=== PATIENT | male | born 1945 | race Caucasian/White ===

== ENCOUNTER → 2017-07-27 | Outpatient (CLI) | payer OTHER ==
[2017-07-27 11:09] LABS: BASO % 1.5 %; BASO ABS # 0.08 K/uL (0-0.2); COMPLETE YES; EOS % 2.9 %; HEMATOCRIT 42.9 % (42-52); IG% 0.2 %; LYMPH % 34.5 %; LYMPH ABS # 1.81 K/uL (1.2-3.4); MEAN CELL VOLUME 83.3 fL (80-100); MEAN CORPUSCULAR HEMOGLOBIN 27.6 pg (25-34); MEAN CORPUSCULAR HGB CONC 33.1 g/dl (32-36); MEAN PLATELET VOLUME 10.2 fL (7.4-10.4); MONO % 9.7 %; NEUT % 51.2 %; PLATELET COUNT 316 K/uL (130-400); RED BLOOD COUNT 5.15 M/uL (4.7-6.1); WHITE BLOOD COUNT 5.25 K/uL (4.8-10.8)
[2017-07-27 11:30] LABS: URINE APPEARANCE CLEAR (CLEAR); URINE BILIRUBIN NEG (NEG); URINE COLOR YELLOW; URINE EPITHELIAL CELL AUTO >30 /lpf (0-5); URINE NITRITE NEG (NEG); URINE PH 5.5 (4.5-7.5); URINE SPECIFIC GRAVITY 1.021 (1.000-1.030); UROBILINOGEN NEG (NEG)
[2017-07-27 11:31] LABS: MANUAL MICROSCOPIC REQUIRED? NO; REVIEW REQ? NO
[2017-07-27 11:37] LABS: BLOOD UREA NITROGEN 25 mg/dl (7-18); BUN/CREATININE RATIO 25.9 (10-20); CALCIUM 9.2 mg/dl (8.5-10.1); CARBON DIOXIDE 30 mmol/L (21-32); CHLORIDE 105 mmol/L (98-107); CHOLESTEROL 239 mg/dl (0-200); CREATININE 0.96 mg/dl (0.60-1.40); GLUCOSE 98 mg/dl (70-99); POTASSIUM 4.8 mmol/L (3.5-5.1); SODIUM 139 mmol/L (136-145)
[2017-07-27 11:48] LABS: ALB/GLOB RATIO 0.9 (0.9-2); ALKALINE PHOSPHATASE 80 U/L (45-117); ALT/SGPT 32 U/L (12-78); AST/SGOT 15 U/L (15-37); CHOLESTEROL/HDL RATIO 4.7; HDL CHOLESTEROL 51 mg/dl; LDL CHOLESTEROL CALCULATED 168 mg/dl; TRIGLYCERIDES 99 mg/dl (0-150); VERY LOW DENSITY LIPOPROT CALC 20 mg/dl
== END | disposition home or self-care (01) ==
LOC: C.LABBC 07:46
PROVIDERS: ATTEND Internal Medicine Pulmonary Disease
DX: Z00.00 Encounter for general adult medical examination without abnormal findings (principal); K21.9 Gastro-esophageal reflux disease without esophagitis; E78.5 Hyperlipidemia, unspecified; N40.0 Benign prostatic hyperplasia without lower urinary tract symptoms

== ENCOUNTER 2019-12-18 16:59 | Observation (INO) ==
[2019-12-18] MEDS ORDERED: SODIUM CHLORIDE 0.9% 500 ML IV SCH (17:45)
[2019-12-18 17:49] LABS: Basophils # (auto) 0.06 K/uL (0-0.2); Basophils % (auto) 0.9 %; Eosinophils % (auto) 2.9 %; Hematocrit (blood only) 41.8 % (42-52); Immature Granulocytes # (auto) 0.02 K/uL (0.00-0.02); Immature Granulocytes % (auto) 0.3 %; Lymphocytes # (auto) 2.23 K/uL (1.2-3.4); Lymphocytes % (auto) 32.4 %; Mean Corpuscular Hemoglobin 28.6 pg (25-34); Mean Corpuscular Hgb Conc 33.5 g/dL (32-36); Mean Corpuscular Volume 85.3 fL (80-100); Mean Platelet Volume 10.5 fL (7.4-10.4); Monocytes # (auto) 0.53 K/uL (0.11-0.59); Monocytes % (auto) 7.7 %; Neutrophils # (auto) 3.84 K/uL (1.4-6.5); Neutrophils % (auto) 55.8 %; Platelet Count 296 K/uL (130-400); RDW Standard Deviation 43.7 fL (36.4-46.3); White Blood Count 6.88 K/uL (4.8-10.8)
[2019-12-18 18:02] LABS: Partial Thromboplastin Time 25.9 Seconds (21.0-31.0); Prothrombin Time 10.2 Seconds (9.0-12.0)
[2019-12-18 18:05] LABS: Albumin Level 3.6 gm/dl (3.4-5.0); BUN Creatinine Ratio 16.4 (10-20); Est GFR (Non-African American) 77.7; Magnesium 2.3 mg/dl (1.8-2.4); Potassium 4.2 mmol/L (3.5-5.1)
[2019-12-18 18:22] LABS: Albumin Globulin Ratio 0.9 (0.9-2); Bilirubin,Total 0.6 mg/dl (0.2-1); Globulin 3.8 gm/dl (2.5-4.0); Thyroid Stimulating Hormone 2.24 uIu/ml (0.300-4.500); Total Protein 7.4 gm/dl (6.4-8.2); Troponin I 0.121 ng/ml (0-0.045)
[2019-12-18] MEDS ORDERED: Heparin IV Low Dose WITH Bolus IV STA (18:37)
[2019-12-18] MEDS ORDERED: ASPIRIN 81 MG CHEW PO STA (18:37)
[2019-12-18] MEDS ORDERED: HEPARIN SODIUM/DEXTROSE 25,000 UNITS/500 ML BAG IV SCH (18:45)
[2019-12-18] MEDS ORDERED: Heparin BOLUS **ED Use Only IV STA (19:33)
--- NOTE | 2019-12-18 19:34 | XRay Report ---
XR chest 2V PA/lateral CLINICAL HISTORY: afib eval for cardiomegaly cardiac arrhythmia COMPARISON STUDY: No previous studies for comparison. FINDINGS: The bones soft tissues and hemidiaphragms are normal. The cardiomediastinal silhouette is n ormal. The lungs are clear. The pulmonary vasculature is normal. IMPRESSION: Negative chest. ACT 112: Negative or not required by law. The above report was generated using voice recognition software. It may contain grammatical, syntax or spelling errors. Electronically signed by: Chance Figueroa M.D. 12/18/2019 7:33 PM
--- NOTE | 2019-12-18 19:47 | History & Physical Report ---
Date of Service December 18, 2019 Assessment & Plan (1) New onset a-fib: Admit to PCU on telemetry. Vital signs every 4 hours. Started heparin drip with bolus in the ER This was discussed with patient account service associate who stated that it will not affect patient vision due to recent cataract surgery per Dr. Lambert. Consult cardiology TTE pending Since heart rate is in 60s at this time we did not start beta-blockers but if rate increases patient should be on it. DVT prophylaxis patient is on heparin drip Full code Present on Admission?: Yes (2) Elevated troponin: Will trend down troponin x3 with EKG. Appears to be elevated troponin associated with increased demand related to A. fib's. It is hard to to know if patient had faster rate of A. fib's prior to this event but he just did not feel it. We will discuss further management with cardiology Present on Admission?: Yes (3) Status post cataract surgery: Continue observing for any kind of bleeding into glans or sclera. Continue eyedrops Present on Admission?: Yes (4) Esophageal reflux: Continue home medicine as omeprazole 40 mg p.o. daily (5) BPH (benign prostatic hyperplasia): Patient does not take anything for enlarged prostate Present on Admission?: Yes (6) Hyperlipidemia: Patient does not take any medication for hyperlipidemia. Plan to repeat lipid panel in a.m. Started atorvastatin 40 mg QHS and aspirin 81 mg p.o. daily. Present on Admission?: Yes History of Present Illness Chief Complaint: New onset of A. fib's Primary Care Provider: Jcarlos Hurtado MD The patient is a 74 y/o male with PMHx of HLD, BPH, GERD, s/p cataract surgery of the left eye today at 3:30, was referred to the emergency room for new onset of atrial fibrillations. Patient reports that he was unaware of atrial fibrillation's and his rate is in 60s to 80s. Patient denies fever, chills, chest pain, shortness of breath, abdominal pain, frequency, urgency, syncope or near syncope. Upon arrival to the emergency room EKG was done which showed atrial fibrillation and ST segment changes in leads V4, V5 and V6. Reviewed which shows WBCs of 6.88, hemoglobin of 14, hematocrit 41.8, platelets 296, PT 10.2, INR 1, APTT 25.9, sodium 138, potassium 4.2, chloride 107, carbon dioxide 24, anion gap 7, BUN 16, creatinine 0.97, GFR 77.7 magnesium 2.3, calcium 9, AST 17, ALT 23, alkaline phosphatase 64, troponin 0 0.121, total protein 7.4, albumin 3.6, globulin 3.8, cholesterol from July 2019 was elevated to 2-33, LDL 163, VLDL 24, HDL 46. TSH is normal 2.24. Chest x-ray shows bone and soft tissues and hemidiaphragm are normal. The cardiomediastinal silhouette is normal the lungs are clear. The pulmonary vasculature is normal. Impression negative chest.The decision was made to admit patient to PCU on telemetry for further evaluation of A. fib's. Allergies Allergy/AdvReac Type Severity Reaction Status Date / Time No Known Allergies Allergy Verified 12/18/19 18:47 Home Medications Home Medications Medication Instructions Recorded Confirmed Type esomeprazole magnesium 40 mg 40 mg PO DAILY #90 cap 06/15/19 12/18/19 Rx capsule,delayed release Prednisolone Po;Gatiflox;Brimf 1 drp OPL DIRECTED 12/18/19 History Past Med/Surg History Medical History BPH (benign prostatic hyperplasia) Esophageal reflux Hyperlipidemia Preoperative clearance Surgical History H/O colonoscopy History of tonsillectomy History of tooth extraction S/P TURP Family History Father Myocardial infarction Dementia Social History marital status: Current Living Situation: Spouse current occupational status: retired Feels Safe at Home: Yes Smoking Status: Never smoker Hx Alcohol Use: Yes Review of Systems Review of Systems: All systems reviewed & are unremarkable except as noted in HPI & below Physical Exam Constitutional: WD/WN, vitals as above well developed and + obese Eyes: normal visual duong by confrontation and PERRL Left eye is pink ENMT: external ear and nose normal, oropharynx normal Neck: trachea midline, no thyromegaly Respiratory: normal respiratory effort, lungs clear to auscultation Cardiovascular: Rate/Rhythm: + irregularly irregular Heart Sounds: normal S1 and normal S2 Palpation: normal PMI Vessels: + JVD Gastrointestinal (Abdomen): normal bowel sounds, soft, nontender, no hepatosplenomegaly Musculoskeletal: no cyanosis or clubbing, extremities motor strength 5/5 Skin: no rashes, warm and dry Neurologic: patellar DTR's 2+ bilat, sensation intact Psychiatric: A+Ox3, euthymic affect Lymphatic: no cervical or axillary lymphadenopathy Results & Data Vital Signs (Past 12 Hours) Vital Signs Temp Pulse Resp BP Pulse Ox 12/18/19 17:12 36.8 C 61 18 144/85 H 97 Code Status & VTE Plan Code Status Full code VTE Prophylaxis Plan VTE Prophylaxis will be ordered: Yes PG Care Time/CCT Total # of Minutes Spent Total Time Spent with Patient: Total time spent is greater than 50% in coordination of care (as documented) at patient's floor/unit and/or counseling patient: (1) Status post cataract surgery Laterality: left Qualified Code(s): Z98.42 - Cataract extraction status, left eye
[2019-12-18] MEDS ORDERED: POLYETHYLENE (MIRALAX) 17 GM PACK PO PRN (21:09)
[2019-12-18] MEDS ORDERED: ALUMINUM/MAGNESIUM SUSP 30 ML UDC PO PRN (21:09)
[2019-12-18] MEDS ORDERED: MAGNESIUM HYDROXIDE SUSP 30 ML UDC PO PRN (21:09)
[2019-12-18] MEDS ORDERED: ONDANSETRON INJ 2 MG/ML 2 ML VIAL IV PRN (21:09)
[2019-12-18] MEDS ORDERED: ACETAMINOPHEN 325 MG TAB PO PRN (21:09)
[2019-12-18] MEDS: ASPIRIN 81 MG ECTAB PO SCH (22:14)
[2019-12-18] MEDS: ATORVASTATIN 40 MG TAB PO SCH (22:15)
--- NOTE | 2019-12-19 00:08 | Emergency Department Note ---
Entered by Anish Willett acting as a scribe for Matthew Lambert MD History of Present Illness General Chief complaint: Cardiac Assessment Stated complaint: CARDIAC ASSESSMENT (AFIB) Time Seen by Provider: 12/18/19 17:19 Source: patient History of Present Illness Provider complaint: Cardiac assessment Onset (ago): hour(s) 2 Location: chest Pain Consistency: + constant Relieved By: + none Associated symptoms: + denies other symptoms (Lightheadedness, diarrhea); no chest pain, no fever/chills, no nausea/vomiting and no shortness of breath The patient is a 74 year old male who presents to the Emergency Room for a cardiac assessment after it was noticed that he was in A-fib/A-flutter following a cataract surgery on his left eye that he had done today about 2 hours ago. The patient states he does not have a history of irregular rhythms and does not noticed that his heart is beating irregularly. The patient denies any chest pain or discomfort, shortness of breath, lightheadedness, fevers, recent illnesses, vomiting, or diarrhea. The patient also denies any history of hypertension or diabetes. The patient did admit that a couple of months ago he noticed himself having some wheezing but it was not exertional. Additionally, he mentioned that he exercises daily and does not get any chest discomfort or shortness of breath. The patient also noted that he recently lost 10 pounds. Home Medications Home Medications Medication Instructions Recorded Confirmed Type esomeprazole magnesium 40 mg 40 mg PO DAILY #90 cap 06/15/19 12/18/19 Rx capsule,delayed release Prednisolone Po;Gatiflox;Brimf 1 drp OPL DIRECTED 12/18/19 History Allergies Allergy/AdvReac Type Severity Reaction Status Date / Time No Known Allergies Allergy Verified 12/18/19 18:47 Past Med/Surg History Medical History BPH (benign prostatic hyperplasia) Esophageal reflux Hyperlipidemia Preoperative clearance Surgical History H/O colonoscopy History of tonsillectomy History of tooth extraction S/P TURP Family History Father Myocardial infarction Dementia Social History Preferred Language: Spanish Career Resource Specialist Required: No Beliefs That Will Affect Care: None marital status: Current Living Situation: Spouse current occupational status: retired Other Information That Helps Us Care for You: Yes Feels Safe at Home: Yes Smoking Status: Never smoker Hx Alcohol Use: Yes Hx Substance Use: No Review of Systems See HPI for pertinent positives & negatives. and A total of 10 systems reviewed and were otherwise negative Physical Exam Vital Signs Vital Signs - 24 hr 12/18/19 17:12 Temperature 36.8 C Temperature Source Oral Pulse Rate 61 Pulse Rhythm Irregular Respiratory Rate 18 Respiratory Effort / Characteristics Non-Labored Respiratory Depth Normal Blood Pressure 144/85 H Blood Pressure Mean 104 Blood Pressure Position Lying Pulse Oximetry 97 Oxygen Delivery Method Room Air Sepsis Recent Fever Within 48 Hours No Sepsis Action Taken by Nursing No Action Required Constitutional: Vital signs reviewed. Eyes: Left eye is covered from surgery. Right pupil is round and reactive to light. Conjunctiva are noninjected. ENT: Pharynx is clear without erythema or exudate. Mucous membranes are moist. Neck supple without meningeal signs. Respiratory: Clear to auscultation bilaterally. Breath sounds are equal bilaterally. Cardiovascular: Regular rate and irregularly irregula rhythm. No rubs or gallops. GI: Soft, nondistended and nontender. Bowel sounds are present. Musculoskeletal: No peripheral edema. No lower extremity tenderness. Integumentary: No cyanosis. Neurological: The patient is awake and alert. No focal deficits. Psychiatric: Normal affect. Course Course 172: Past medical records reviewed. The patient was evaluated in room B09, and a complete history and physical examination were performed. 1742: I spoke to Dr. Herrera - Ophthalmology about the patient's case and the surgery that he performed on the patient today. He stated there is no contraindication for anti-coagulants. 1840: I reevaluated the patient and he remains asymptomatic but still shows A-f ib on the monitor. We discussed the test results and I recommended hospitalization. We also discussed the risks and benefits of IV Heparin. We are going to repeat an EKG. I spoke to Dr. Aleman - [facility]ist about the patient's case and she agreed to accept him for further evaluation. 1850: I spoke to Dr. Phillips - Cardiology and he is agreeable with the plan. 1855: I reevaluated the patient and he is still asymptomatic, waiting on the Heparin drip. We also went over his repeat EKG. Consultations Consultation #1: I spoke to Dr. Herrera - Ophthalmology about the patient's case and the surgery that he performed on the patient today. He stated there is no contraindication for anti-coagulants. Time: 17:42 Consultation #2: I spoke to Dr. Aleman - [facility] Hospitalist about the patient's case and she agreed to accept him for further evaluation. Time: 18:40 Consultation #3: I spoke to Dr. Phillips - Cardiology and he is agreeable with the plan. Time: 18:50 Administered Medications Aspirin (Ecotrin Ectab) 81 mg PO DAILY VERONICA Stop: 01/17/20 21:29 Last Admin: 12/18/19 22:14 Dose: 81 mg Documented by: [id number] Atorvastatin Calcium (Lipitor) 40 mg PO QAM VERONICA Stop: 01/17/20 21:29 Last Admin: 12/18/19 22:15 Dose: 40 mg Documented by: [id number] Heparin Sodium/Dextrose (Heparin Sodium/Dextrose) 25,000 units in 500 mls @ 19 mls/hr IV .Q24H VERONICA; Protocol Stop: 01/17/20 18:44 Last Titration: 12/18/19 23:13 Dose: 950 units/hr, 19 mls/hr Documented by: [id number] Cosigned by: [id number] Titration: 12/18/19 21:07 Dose: 950 units/hr, 19 mls/hr Documented by: [id number] Cosigned by: [id number] Admin: 12/18/19 19:48 Dose: 950 units/hr, 19 mls/hr Documented by: [id number] Cosigned by: [id number] Discontinued Medications Aspirin (Aspirin Chew) 324 mg PO NOW STA Stop: 12/18/19 18:38 Last Admin: 12/18/19 18:51 Dose: 324 mg Documented by: [id number] Heparin Sodium (Porcine) (Heparin Iv Bolus) 4,000 units IV NOW STA Stop: 12/18/19 19:34 Last Admin: 12/18/19 19:48 Dose: 4,000 units Documented by: [id number] Cosigned by: [id number] Heparin Sodium/Dextrose () 1 ea IV NOW STA; Protocol Stop: 12/18/19 18:38 Last Admin: 12/18/19 19:49 Dose: Not Given Documented by: [id number] Sodium Chloride (Nss) 500 mls @ 999 mls/hr IV .Q31M VERONICA Stop: 12/18/19 18:15 Last Infusion: 12/18/19 18:10 Dose: 0 mls/hr Documented by: [id number] Admin: 12/18/19 17:36 Dose: 999 mls/hr Documented by: [id number] Critical Care Time Critical Care Time: Yes Total Critical Care Time: 35 I have personally spent approximately 35 minutes of critical care time in the direct management of this patient. This includes bedside care, interpretation of diagnostic studies, and testing, discussion with consultants, patient, and family members, and other required patient management activities. This 35 minutes is in excess of all separately billable procedures. Medical Decision Making Differential Diagnosis Differential Diagnosis includes: Atrial fibrillation, atrial flutter, metabolic derangement, electrolyte abnormality, and ACS, amongst others. Medical Records Attestation: I reviewed the patient's medical records. I did perform a limited focused review of portions of the patient's old chart on the electronic medical record. The patient was seen on 12/10 for pre-op clearance. He had cataract surgery done today at 15:30, 2 hours ago. Home Medications Current Medication List: was personally reviewed by me Laboratory Data Attestation: I reviewed the patient's lab results. Result diagrams: 12/18/19 17:17 12/18/19 17:17 Lab Results 12/18/19 12/18/19 12/18/19 Range/Units 17:17 17:17 17:17 WBC 6.88 (4.8-10.8) K/uL RBC 4.90 (4.7-6.1) M/uL Hgb 14.0 (14.0-18.0) g/dL Hct 41.8 L (42-52) % MCV 85.3 (80-100) fL MCH 28.6 (25-34) pg MCHC 33.5 (32-36) g/dL RDW Std Deviation 43.7 (36.4-46.3) fL RDW Coeff of Sj 14.0 (11.5-14.5) % Plt Count 296 (130-400) K/uL MPV 10.5 H (7.4-10.4) fL Immature Gran % (Auto) 0.3 % Neut % (Auto) 55.8 % Lymph % (Auto) 32.4 % [place] % (Auto) 7.7 % Eos % (Auto) 2.9 % Baso % (Auto) 0.9 % Immature Gran # (Auto) 0.02 (0.00-0.02) K/uL Neut # (Auto) 3.84 (1.4-6.5) K/uL Lymph # (Auto) 2.23 (1.2-3.4) K/uL [place] # (Auto) 0.53 (0.11-0.59) K/uL Eos # (Auto) 0.20 (0-0.5) K/uL Baso # (Auto) 0.06 (0-0.2) K/uL PT 10.2 (9.0-12.0) Seconds INR 1.0 (0.9-1.1) APTT 25.9 (21.0-31.0) Seconds PTT Ratio 1.0 Sodium 138 (136-145) mmol/L Potassium 4.2 (3.5-5.1) mmol/L Chloride 107 (98-107) mmol/L Carbon Dioxide 24 (21-32) mmol/L Anion Gap 7.0 (3-11) BUN 16 (7-18) mg/dl Creatinine 0.97 (0.6-1.4) mg/dl Est Cr Clr Drug Dosing 76.0 ml/min Est GFR ( Amer) 90.0 Est GFR (Non-Af Amer) 77.7 BUN/Creatinine Ratio 16.4 (10-20) Glucose 107 H (70-99) mg/dl Calcium 9.0 (8.5-10.1) mg/dl Magnesium 2.3 (1.8-2.4) mg/dl Total Bilirubin 0.6 (0.2-1) mg/dl AST 17 (15-37) U/L ALT 23 (12-78) U/L Alkaline Phosphatase 64 (45-117) U/L Troponin I 0.121 H* (0-0.045) ng/ml Total Protein 7.4 (6.4-8.2) gm/dl Albumin 3.6 (3.4-5.0) gm/dl Globulin 3.8 (2.5-4.0) gm/dl Albumin/Globulin Ratio 0.9 (0.9-2) TSH 2.240 (0.300-4.500) uIu/ml Hepatitis C Ab Screen (Neg) 12/18/19 Range/Units 17:17 WBC (4.8-10.8) K/uL RBC (4.7-6.1) M/uL Hgb (14.0-18.0) g/dL Hct (42-52) % MCV (80-100) fL MCH (25-34) pg MCHC (32-36) g/dL RDW Std Deviation (36.4-46.3) fL RDW Coeff of Sj (11.5-14.5) % Plt Count (130-400) K/uL MPV (7.4-10.4) fL Immature Gran % (Auto) % Neut % (Auto) % Lymph % (Auto) % [place] % (Auto) % Eos % (Auto) % Baso % (Auto) % Immature Gran # (Auto) (0.00-0.02) K/uL Neut # (Auto) (1.4-6.5) K/uL Lymph # (Auto) (1.2-3.4) K/uL [place] # (Auto) (0.11-0.59) K/uL Eos # (Auto) (0-0.5) K/uL Baso # (Auto) (0-0.2) K/uL PT (9.0-12.0) Seconds INR (0.9-1.1) APTT (21.0-31.0) Seconds PTT Ratio Sodium (136-145) mmol/L Potassium (3.5-5.1) mmol/L Chloride (98-107) mmol/L Carbon Dioxide (21-32) mmol/L Anion Gap (3-11) BUN (7-18) mg/dl Creatinine (0.6-1.4) mg/dl Est Cr Clr Drug Dosing ml/min Est GFR ( Amer) Est GFR (Non-Af Amer) BUN/Creatinine Ratio (10-20) Glucose (70-99) mg/dl Calcium (8.5-10.1) mg/dl Magnesium (1.8-2.4) mg/dl Total Bilirubin (0.2-1) mg/dl AST (15-37) U/L ALT (12-78) U/L Alkaline Phosphatase (45-117) U/L Troponin I (0-0.045) ng/ml Total Protein (6.4-8.2) gm/dl Albumin (3.4-5.0) gm/dl Globulin (2.5-4.0) gm/dl Albumin/Globulin Ratio (0.9-2) TSH (0.300-4.500) uIu/ml Hepatitis C Ab Screen Neg (Neg) Imaging Data Radiologist's Impression: Radiology results as stated below per my review and the radiologist's interpretation: XR chest 2V PA/lateral CLINICAL HISTORY: afib eval for cardiomegaly cardiac arrhythmia COMPARISON STUDY: No previous studies for comparison. FINDINGS: The bones soft tissues and hemidiaphragms are normal. The cardiomediastinal silhouette is normal. The lungs are clear. The pulmonary vasculature is normal. IMPRESSION: Negative chest. ACT 112: Negative or not required by law. The above report was generated using voice recognition software. It may contain grammatical, syntax or spelling errors. Electronically signed by: Chance Figueroa M.D. 12/18/2019 7:33 PM ECG Data Attestation: I personally reviewed and interpreted this ECG as follows: Indication: + other (Irregular rhythm) Rate (beats per minute): 61 Rhythm: + atrial fibrillation ECG Intervals/blocks: no Prolonged QT ECG ST segments: no ST elevation ECG Findings: no PVCs Additional Comments: REPEAT EKG A-Fib rate of 64, no ST elevation or ST depression, no PVCs, normal axis, and normal QRS Blood Pressure Blood Pressure Findings: Elevated blood pressure Blood Pressure Disposition: further management by hospitalist [facility] Narrative I did evaluate the patient as noted above. The patient was sent here from [facility] after having cataract surgery and being in atrial fibrillation/flutter. He has no symptoms and has not had any recent chest discomfort or pain. He did have one episode of wheezing about a week ago but has not had any shortness of breath since. Currently he is asymptomatic. IV access was established. The patient was placed on a continuous security monitor. I did order and personally review the patient's 12-lead EKG as described above. He has atrial fibrillation with no acute ischemic changes. I did order and personally reviewed the images of the patient's chest x-ray as described above. There is no cardiomegaly. No infiltrate. I did order and review the patient's blood work as noted in the electronic medical record. CBC is unremarkable without leukocytosis or anemia. Electrolytes are unremarkable. TSH is within normal limits. Troponin is elevated at 0.12. I did discuss the test results with the patient. Given the elevated troponin I did recommend hospitalization. I did start him on IV heparin after discussion of risks and benefits. He was given a bolus and st arted on a drip. I did talk to his fire alarm repairer who stated there was no contraindication to anticoagulation. He did have cataract surgery at 3:30 PM today. I did talk to the managing partner [employer] content [employer] [place] on-call who agreed with my management. I did discuss the case with the hospitalist and case finisher. Impression & Plan New onset a-fib, Elevated troponin, Status post cataract surgery Discharge Plan Visit Data *Final* Discharge Date/Time: 12/18/19 20:34 Chief Complaint: Cardiac Assessment Stated Complaint: CARDIAC ASSESSMENT (AFIB) ED Provider: Matthew Lambert Discharge Problem: New onset a-fib, Elevated troponin, Status post cataract surgery Patient Disposition: Admitted As Inpatient Discharge Instructions Interventions: ED Discharge Assessment Last Done: 12/18/19 20:34 Discharge Problem: Status post cataract surgery Qualifiers: Laterality: left Qualified Code(s): Z98.42 - Cataract extraction status, left eye The scribe's documentation has been prepared under my direction and personally reviewed by me in its entirety. I confirm that the note above accurately reflects all work, treatment, procedures, and medical decision making performed by me.
[2019-12-19 02:11] LABS: Partial Thromboplastin Ratio 1.5; Partial Thromboplastin Time 41.4 Seconds (21.0-31.0); Prothrombin Time 10.3 Seconds (9.0-12.0)
[2019-12-19] MEDS ORDERED: HEPARIN IV BOLUS 3,000 UNITS in SYRINGE 0 ML IV ONE ×2 (02:20→10:30)
[2019-12-19 03:17] LABS: Basophils # (auto) 0.08 K/uL (0-0.2); Basophils % (auto) 1.5 %; Eosinophils # (auto) 0.15 K/uL (0-0.5); Eosinophils % (auto) 2.8 %; Hematocrit (blood only) 39.5 % (42-52); Hemoglobin 12.7 g/dL (14.0-18.0); Immature Granulocytes # (auto) 0.01 K/uL (0.00-0.02); Immature Granulocytes % (auto) 0.2 %; Lymphocytes % (auto) 41.7 %; Mean Corpuscular Hemoglobin 27.9 pg (25-34); Mean Corpuscular Hgb Conc 32.2 g/dL (32-36); Mean Corpuscular Volume 86.6 fL (80-100); Mean Platelet Volume 10.2 fL (7.4-10.4); Monocytes # (auto) 0.47 K/uL (0.11-0.59); Monocytes % (auto) 8.9 %; Neutrophils # (auto) 2.36 K/uL (1.4-6.5); Neutrophils % (auto) 44.9 %; Platelet Count 239 K/uL (130-400); RDW Coefficient of Variation 14.1 % (11.5-14.5); RDW Standard Deviation 44.4 fL (36.4-46.3); Red Blood Count 4.56 M/uL (4.7-6.1); White Blood Count 5.27 K/uL (4.8-10.8)
[2019-12-19 03:33] LABS: Albumin Level 3.1 gm/dl (3.4-5.0); BUN Creatinine Ratio 16.2 (10-20); Calcium 8.5 mg/dl (8.5-10.1); Creatinine Clr Calc Pharmacy 74.8 ml/min; Est GFR (African American) 86.8; Est GFR (Non-African American) 74.9; Potassium 4.1 mmol/L (3.5-5.1)
[2019-12-19 03:46] LABS: Albumin Globulin Ratio 0.9 (0.9-2); Bilirubin,Total 0.4 mg/dl (0.2-1); Globulin 3.5 gm/dl (2.5-4.0); Total Protein 6.6 gm/dl (6.4-8.2); Troponin I 0.584 ng/ml (0-0.045)
[2019-12-19 06:02] LABS: Estimated Average Glucose 105 mg/dl; Hemoglobin A1C 5.3 % (4.5-5.6)
[2019-12-19] MEDS ORDERED: PERFLUTREN LIPID MICROSPHERE (DEFINITY) IV ONE (07:54)
[2019-12-19] MEDS ORDERED: PANTOprazole 40 MG TAB PO SCH (09:00)
[2019-12-19] MEDS: ATORVASTATIN 40 MG TAB PO SCH (09:02)
[2019-12-19] MEDS: ASPIRIN 81 MG ECTAB PO SCH (09:03)
[2019-12-19 10:03] LABS: Partial Thromboplastin Ratio 1.7
[2019-12-19 10:11] LABS: Partial Thromboplastin Time 45.4 Seconds (21.0-31.0)
--- NOTE | 2019-12-19 13:38 | Cardiology Consultation ---
Date of Consultation December 19, 2019 Assessment & Plan (1) Elevated troponin: (2) Atrial fibrillation: (3) Pulmonary hypertension: (4) Aortic stenosis: (5) Mitral regurgitation: (6) Hyperlipidemia: ASSESSMENT/PLAN: 1. Atrial fibrillation: We discussed the diagnosis. He is completely asymptomatic. Heart rate is adequately controlled despite no rate-controlling medications. Onset of atrial fibrillation is not known. Chads Vasc score is 1, soon to be 2 based on age in the next 2.5 years. He is agreeable for anticoagulation for stroke risk reduction. 2. Aortic stenosis: Discussed the diagnosis. Asymptomatic as expected as it is only mild. Monitor over time. 3. Mitral regurgitation: Moderate on echo. Asymptomatic. Monitor over time. We will likely repeat echo in approximately 1-2 years. 4. Pulmonary hypertension: Etiology uncertain. Sounds as though he may have sleep apnea and does have mild RV dilation. Recommend sleep study. He follows with Dr. Hurtado. Will monitor with repeat echo in future. 5. Elevated troponin: Etiology uncertain. There is no record of significant tachycardia with his atrial fibrillation. He is also completely asymptomatic. Cannot rule out minor event intraoperatively however cataract surgery is a low risk surgery. Given his lack of symptoms, recommend noninvasive ischemic evaluation but this can be done as an outpatient. He was advised to call 911 for any symptoms concerning for ischemic heart disease such as chest pain, shortness of breath, syncope. He has been advised to avoid strenuous activity for at 1 week following cataract surgery by his medical laboratory technicians and therefore the stress test will be ordered to be done in approximately 2 weeks. Elevated troponin was not diagnostic for myocardial infarction. 6. Dyslipidemia: Agree with statin therapy, especially if there is potential for underlying CAD given his elevated troponin. 7. Disposition: Plan of care discussed with Dr. Bess the primary hospitalist service. Cardiology follow-up and stress echo is being arranged through the cardiology office. Recommend stress echo in approximately 2 weeks with follow- up in approximately 3 weeks. History of Present Illness Reason for Consultation: Atrial fibrillation Requesting Physician: Dr. Aleman Attending Physician: Eduardo Bess MD History of Present Illness Mr. Martinez is a very pleasant 74-year-old gentleman with a history significant for dyslipidemia who was admitted on 12/18/2019 after being referred to the emergency department for atrial fibrillation. He denies a history of atrial fibrillation and underwent left cataract surgery yesterday. He was told mild air that he was in atrial fibrillation. Outside ECG demonstrates rate controlled AFib. He was completely asymptomatic. While in the ER, he had troponin performed and it was slightly elevated at 0.121. Because of this, he was admitted. He exercises 5 days per week including 30 minutes on a stationary bicycle and then strength training. Exercise tolerance is stable. This is a chronic regimen for him. He denies chest pain, shortness of breath, syncope, near- syncope, palpitations, or edema. He last exercised yesterday morning prior to his cataract surgery. His troponin peaked at 0.584. He has remained asymptomatic. He has not required rate controlling medications. His family admits that he does snore loudly and naps during the day, more so than in the past. There has not been any reported apneic episodes while sleeping. He has not had a sleep study. He has not had any recent echo or stress testing. He denies bleeding such as melena, hematochezia, hematuria. Review of systems: As above. Review of systems otherwise negative/unremarkable. Family history: Father had NV in his late 60s. Social history: Denies tobacco, alcohol, or drug abuse. He lives at home with his and son. His , Sonja, and son, Ty, accompany him. He also has a daughter who teaches in [employer]. He is retired, previously working as the director of marketing operations at [employer]. Allergies Allergy/AdvReac Type Severity Reaction Status Date / Time No Known Allergies Allergy Verified 12/18/19 18:47 Home Medications Home Medications Medication Instructions Recorded Confirmed Type esomeprazole magnesium 40 mg 40 mg PO DAILY #90 cap 06/15/19 12/18/19 Rx capsule,delayed release Prednisolone Po;Gatiflox;Brimf 1 drp OPL DIRECTED 12/18/19 History Patient History Medical History BPH (benign prostatic hyperplasia) Esophageal reflux Hyperlipidemia Preoperative clearance Surgical History H/O colonoscopy History of tonsillectomy History of tooth extraction S/P TURP Family History Father Myocardial infarction Dementia Social History Preferred Language: Romansh Ash Worker Required: No Beliefs That Will Affect Care: None marital status: Current Living Situation: Spouse current occupational status: retired Feels Safe at Home: Yes Smoking Status: Never smoker Hx Alcohol Use: Yes Hx Substance Use: No Physical Exam Physical Exam: Gen.: No acute distress. Alert and oriented. HEENT: Anicteric sclera. Neck: No JVD. No bruits. Normal carotid upstrokes bilaterally. Cardiac: PMI was nondisplaced. No ventricular heave. Irregularly irregular. Normal rate. Normal S1-S2. 2/6 early peaking systolic ejection murmur. No rubs, or gallops. Pulmonary: Clear to auscultation bilaterally without wheezes, rales, or rhonchi. Abdomen: Soft, nontender, nondistended, with normoactive bowel sounds. No bruits noted. Extremities: 2+ radial pulses bilaterally. 2+ posterior tibialis pulses bilaterally. No edema or cyanosis. No palpable cords. Psychiatric: Affect appears appropriate. Results & Data Vital Signs (Past 12 Hours) Vital Signs Temp Pulse Pulse Resp BP BP Pulse Ox 12/19/19 10:54 36.5 C 63 16 134/77 95 12/19/19 08:07 57 L 12/19/19 07:15 36.4 C L 60 17 136/91 98 12/19/19 03:11 36.5 C 58 L 18 113/66 97 Laboratory Results Laboratory Results - last 24 hr 12/18/19 12/18/19 12/18/19 17:17 17:17 17:17 WBC 6.88 RBC 4.90 Hgb 14.0 Hct 41.8 L MCV 85.3 MCH 28.6 MCHC 33.5 RDW Std Deviation 43.7 RDW Coeff of Sj 14.0 Plt Count 296 MPV 10.5 H Immature Gran % (Auto) 0.3 Neut % (Auto) 55.8 Lymph % (Auto) 32.4 [place] % (Auto) 7.7 Eos % (Auto) 2.9 Baso % (Auto) 0.9 Immature Gran # (Auto) 0.02 Neut # (Auto) 3.84 Lymph # (Auto) 2.23 [place] # (Auto) 0.53 Eos # (Auto) 0.20 Baso # (Auto) 0.06 PT 10.2 INR 1.0 APTT 25.9 PTT Ratio 1.0 Sodium 138 Potassium 4.2 Chloride 107 Carbon Dioxide 24 Anion Gap 7.0 BUN 16 Creatinine 0.97 Est Cr Clr Drug Dosing 76.0 Est GFR ( Amer) 90.0 Est GFR (Non-Af Amer) 77.7 BUN/Creatinine Ratio 16.4 Glucose 107 H Estimat Average Glucose Hemoglobin A1c Calcium 9.0 Magnesium 2.3 Total Bilirubin 0.6 AST 17 ALT 23 Alkaline Phosphatase 64 Troponin I 0.121 H* Total Protein 7.4 Albumin 3.6 Globulin 3.8 Albumin/Globulin Ratio 0.9 Triglycerides Cholesterol LDL Cholesterol, Calc VLDL Cholesterol, Calc HDL Cholesterol Cholesterol/HDL Ratio TSH 2.240 Hepatitis C Ab Screen 12/18/19 12/18/19 12/19/19 17:17 21:18 01:35 WBC RBC Hgb Hct MCV MCH MCHC RDW Std Deviation RDW Coeff of Sj Plt Count MPV Immature Gran % (Auto) Neut % (Auto) Lymph % (Auto) [place] % (Auto) Eos % (Auto) Baso % (Auto) Immature Gran # (Auto) Neut # (Auto) Lymph # (Auto) [place] # (Auto) Eos # (Auto) Baso # (Auto) PT 10.3 INR 1.0 APTT 41.4 H PTT Ratio 1.5 Sodium Potassium Chloride Carbon Dioxide Anion Gap BUN Creatinine Est Cr Clr Drug Dosing Est GFR ( Amer) Est GFR (Non-Af Amer) BUN/Creatinine Ratio Glucose Estimat Average Glucose Hemoglobin A1c Calcium Magnesium Total Bilirubin AST ALT Alkaline Phosphatase Troponin I 0.440 H* Total Protein Albumin Globulin Albumin/Globulin Ratio Triglycerides Cholesterol LDL Cholesterol, Calc VLDL Cholesterol, Calc HDL Cholesterol Cholesterol/HDL Ratio TSH Hepatitis C Ab Screen Neg 12/19/19 12/19/19 12/19/19 03:08 03:08 03:08 WBC 5.27 RBC 4.56 L Hgb 12.7 L Hct 39.5 L MCV 86.6 MCH 27.9 MCHC 32.2 RDW Std Deviation 44.4 RDW Coeff of Sj 14.1 Plt Count 239 MPV 10.2 Immature Gran % (Auto) 0.2 Neut % (Auto) 44.9 Lymph % (Auto) 41.7 [place] % (Auto) 8.9 Eos % (Auto) 2.8 Baso % (Auto) 1.5 Immature Gran # (Auto) 0.01 Neut # (Auto) 2.36 Lymph # (Auto) 2.20 [place] # (Auto) 0.47 Eos # (Auto) 0.15 Baso # (Auto) 0.08 PT INR APTT PTT Ratio Sodium 140 Potassium 4.1 Chloride 108 H Carbon Dioxide 30 Anion Gap 2.0 L BUN 16 Creatinine 1.00 Est Cr Clr Drug Dosing 74.8 Est GFR ( Amer) 86.8 Est GFR (Non-Af Amer) 74.9 BUN/Creatinine Ratio 16.2 Glucose 89 Estimat Average Glucose 105 Hemoglobin A1c 5.3 Calcium 8.5 Magnesium Total Bilirubin 0.4 AST 15 ALT 22 Alkaline Phosphatase 60 Troponin I 0.584 H* Total Protein 6.6 Albumin 3.1 L Globulin 3.5 Albumin/Globulin Ratio 0.9 Triglycerides 149 Cholesterol 192 LDL Cholesterol, Calc 120 VLDL Cholesterol, Calc 30 HDL Cholesterol 42 Cholesterol/HDL Ratio 5 TSH Hepatitis C Ab Screen 12/19/19 12/19/19 09:15 09:15 WBC RBC Hgb Hct MCV MCH MCHC RDW Std Deviation RDW Coeff of Sj Plt Count MPV Immature Gran % (Auto) Neut % (Auto) Lymph % (Auto) [place] % (Auto) Eos % (Auto) Baso % (Auto) Immature Gran # (Auto) Neut # (Auto) Lymph # (Auto) [place] # (Auto) Eos # (Auto) Baso # (Auto) PT INR APTT 45.4 H* PTT Ratio 1.7 Sodium Potassium Chloride Carbon Dioxide Anion Gap BUN Creatinine Est Cr Clr Drug Dosing Est GFR ( Amer) Est GFR (Non-Af Amer) BUN/Creatinine Ratio Glucose Estimat Average Glucose Hemoglobin A1c Calcium Magnesium Total Bilirubin AST ALT Alkaline Phosphatase Troponin I 0.450 H* Total Protein Albumin Globulin Albumin/Globulin Ratio Triglycerides Cholesterol LDL Cholesterol, Calc VLDL Cholesterol, Calc HDL Cholesterol Cholesterol/HDL Ratio TSH Hepatitis C Ab Screen Diagnostic Findings Telemetry personally reviewed: Atrial fibrillation. Longest pause approx 2.5 seconds. Heart rate otherwise well controlled. ECGs personally reviewed: ECG 12/18/2019 at 6:47 p.m.: AFib 64 bpm. Possible anterior infarct. ECG 12/18/2019 at 5:07 p.m.: AFib 61 bpm. Possible anterior infarct. ECG 12/18/2019 (out of hospital): AFib 70 bpm. Possible inferior infarct. Cannot rule out anterior infarct. Echo 12/19/2019: Normal LV size, wall motion, systolic function. Moderate LVH. EF 60-65%. Mildly dilated RV with normal systolic function. Moderate left atrial dilation. Mild right atrial dilation. Mild aortic stenosis with trace regurgitation. Moderate MR. RVSP 59. Chest x-ray 12/18/2019: No acute findings as per Radiology. Medications Administered Current Inpatient Medications Acetaminophen (Tylenol) 650 mg PO Q4H PRN PRN Reason: Pain or Fever Stop: 01/17/20 21:08 Al Hydrox/Mg Hydrox/Simethicone (Maalox) 15 ml PO Q4H PRN PRN Reason: Dyspepsia Stop: 01/17/20 21:08 Aspirin (Ecotrin Ectab) 81 mg PO DAILY [facility] Stop: 01/17/20 21:29 Last Admin: 12/19/19 09:03 Dose: 81 mg Documented by: Atorvastatin Calcium (Lipitor) 40 mg PO QAM [facility] Stop: 01/17/20 21:29 Last Admin: 12/19/19 09:02 Dose: 40 mg Documented by: Heparin Sodium/Dextrose (Heparin Sodium/Dextrose) 25,000 units in 500 mls @ 23 mls/hr IV .[id number] [facility]; Protocol Stop: 01/17/20 18:44 Last Titration: 12/19/19 10:19 Dose: 1,150 units/hr, 23 mls/hr Documented by: Magnesium Hydroxide (Milk Of Magnesia) 30 ml PO Q12H PRN PRN Reason: Constipation Stop: 01/17/20 21:08 Ondansetron HCl (Zofran) 4 mg IV Q6H PRN PRN Reason: Nausea Stop: 01/17/20 21:08 Pantoprazole Sodium (Protonix) 40 mg PO DAILY [facility] Stop: 01/18/20 08:59 Last Admin: 12/19/19 09:02 Dose: 40 mg Documented by: Polyethylene Glycol (Miralax Powder Packet) 17 gm PO DAILY PRN PRN Reason: Constipation Stop: 01/17/20 21:08 PG Care Time/CCT Total # of Minutes Spent Total Time Spent with Patient: Total time spent is greater than 50% in coordination of care (as documented) at patient's floor/unit and/or counseling patient:
[2019-12-19] MEDS ORDERED: APIXABAN 5 MG TABLET PO STA (14:24)
--- NOTE | 2019-12-19 16:04 | Discharge Summary ---
Date of Service December 19, 2019 Admission HPI Per Admitting Provider The patient is a 74 y/o male with PMHx of HLD, BPH, GERD, s/p cataract surgery of the left eye today at 3:30, was referred to the emergency room for new onset of atrial fibrillations. Patient reports that he was unaware of atrial fibrillation's and his rate is in 60s to 80s. Patient denies fever, chills, chest pain, shortness of breath, abdominal pain, frequency, urgency, syncope or near syncope. Upon arrival to the emergency room EKG was done which showed atrial fibrillation and ST segment changes in leads V4, V5 and V6. Reviewed which shows WBCs of 6.88, hemoglobin of 14, hematocrit 41.8, platelets 296, PT 10.2, INR 1, APTT 25.9, sodium 138, potassium 4.2, chloride 107, carbon dioxide 24, anion gap 7, BUN 16, creatinine 0.97, GFR 77.7 magnesium 2.3, calcium 9, AST 17, ALT 23, alkaline phosphatase 64, troponin 0 0.121, total protein 7.4, albumin 3.6, globulin 3.8, cholesterol from July 2019 was elevated to 2-33, LDL 163, VLDL 24, HDL 46. TSH is normal 2.24. Chest x-ray shows bone and soft tissues and hemidiaphragm are normal. The cardiomediastinal silhouette is normal the lungs are clear. The pulmonary vasculature is normal. Impression negative chest.The decision was made to admit patient to PCU on telemetry for further evaluation of A. fib's. Principal Diagnosis New onset afib Discharge Exam Constitutional WD/WN, vitals as above well developed and + obese Eyes normal visual duong by confrontation and PERRL ENMT external ear and nose normal, oropharynx normal Neck trachea midline, no thyromegaly Respiratory normal respiratory effort, lungs clear to auscultation Cardiovascular Rate/Rhythm: + irregularly irregular Heart Sounds: normal S1 and normal S2 Palpation: normal PMI Vessels: + JVD Gastrointestinal (Abdomen) normal bowel sounds, soft, nontender, no hepatosplenomegaly Musculoskeletal no cyanosis or clubbing, extremities motor strength 5/5 Skin no rashes, warm and dry Neurologic patellar DTR's 2+ bilat, sensation intact Psychiatric A+Ox3, euthymic affect Lymphatic no cervical or axillary lymphadenopathy Discharge Data Allergies Allergy/AdvReac Type Severity Reaction Status Date / Time No Known Allergies Allergy Verified 12/18/19 18:47 Consultations 12/18/19 18:43 ED Decision to Admit Stat 12/18/19 21:09 Consult Cardiology Routine Hospital Course (1) New onset a-fib: Echo showed evidence of pHTN & right-sided heart strain; however, LVEF was 60-65%. - Started on apixaban - $30/month - No need for rate-control, as he remained in the 60s on his own. - Will follow up with Dr. Mckenzie for a stress test (has to be >1 week after his cataract surgery) and further testing. Will follow up with Dr. Hurtado for sleep testing to investigate LORRAINE (given the right-sided heart issues.) (2) Elevated troponin: Possible demand ischemia, though we did not see any evidence of tachycardia here. Possible small ACS. - Started statin inpatient - Outpatient stress test (3) Status post cataract surgery: No observed bleeding in the eye. - Continue eyedrops (4) Esophageal reflux: - Continue home omeprazole (5) BPH (benign prostatic hyperplasia): Patient does not take anything for enlarged prostate. (6) Hyperlipidemia: Patient does not take any medication for hyperlipidemia. - Started atorvastatin 40 mg QHS. Total Time Total Time Spent Total Time Spent (In Minutes): 35 Discharge Plan Discharge Items Patient Disposition: Home - Self-Care Reason For Visit: NEW ONSET OF AFIBS Discharge Diagnosis: New atrial fibrillation Activity: Resume your previous activity Non-emergency contact: Primary Care Provider and Junior Systems Engineer Call non-emergency contact if: you have any medication questions and your symptoms worsen Follow-up/Referrals: Jcarlos Hurtado MD [Primary Care Provider] - 12/24/19 9:00 am (Please, follow up at Dr. Hurtado's office with his associate, Martha Carvalho PA-C, on TuesdayDecember 24 at 9:00 am. *If you need to change this appointment, call their office at [phone]. ) Diet: Heart Healthy Addtl Attending Provider Instructions: You were admitted for an irregular heart rate called atrial fibrillation. This was just picked up incidentally on an EKG during your cataract surgery. We started you on a blood thinner called Eliquis. You got a dose in the hospital, so do not take your next dose until tomorrow morning. You will follow up with Dr. Mckenzie in the office to help look into your heart issues. Fortunately, your heart rate is controlled on its own. Please follow up with Dr. Hurtado regarding any possible sleep testing needed. Pending Studies at Discharge: No Stand-Alone Forms: [facility], Smoking Cessation Medications and DC Order Prescriptions: New atorvastatin 40 mg Tablet 40 mg PO QAM Qty: 30 RF: 0 apixaban 5 mg tablet 5 mg PO Q12H Qty: 60 RF: 0 Continued esomeprazole magnesium 40 mg capsule,delayed release(DR/EC) 40 mg PO DAILY Qty: 90 RF: 3 Prednisolone Po;Gatiflox;Brimf 1 drp OPL DIRECTED RF: 0 Discharge Orders: Discharge Order (Routine); Ordered 12/19/19 Ordered By: Eduardo Bess Admission Data Admit Date/Time: 12/18/19 19:52 Attending Provider: Eduardo Bess Admit Provider: Jese Aleman Primary Care Provider: Jcarlos Hurtado Other Providers: Jarad Mckenzie ; Eduardo Bess Other Interventions: Discharge Summary Assessment (RN) Last Done: 12/19/19 14:28
--- NOTE | 2019-12-19 22:55 | Electrocardiogram Report ---
Test Reason : Blood Pressure : / mmHG Vent. Rate : 061 BPM Atrial Rate : 052 BPM P-R Int : 000 ms QRS Dur : 084 ms QT Int : 396 ms P-R-T Axes : 000 028 062 degrees QTc Int : 398 ms Atrial fibrillation Possible Anterior infarct , age undetermined Abnormal ECG When compared with ECG of 28-SEP-2001 10:09, Atrial fibrillation has replaced Sinus rhythm Confirmed by Jarad Mckenzie ([id number]) on 12/19/2019 10:55:03 PM Referred By: REFERRED SELF Confirmed By:Jarad Mckenzie
== END 2019-12-19 16:23 | disposition home or self-care (01) | DRG 309 ==
LOC: ED 16:59 → 2S 19:52 → SUATTDRO 19:52 → INTOOBSV 19:52 → 2S 20:34